=== PATIENT | female | born 1970 | race Caucasian/White ===

== ENCOUNTER 2018-10-11 08:54 | Emergency (ER) | payer MEDICAID ==
[2018-10-11 09:02] VITALS: BP 131/86
--- NOTE | 2018-10-11 09:09 | ED Physician Documentation ---
PD HPI HEENT - Stated complaint Stated Complaint: TOOTH PX - Chief complaint Chief Complaint: Heent - History obtained from History obtained from: Patient - History of Present Illness Timing - onset: How many days ago (2-3 days ago, had her dental implant break off and fall out (it had been loosening over time), and now with some purulence draining. No noted focal swelling.) Timing - duration: Days Timing - details: Abrupt onset, Still present Location: Tooth (left lower canine that had had implant as anchor for dentures.) Associated symptoms: No: Fever, Congestion, Rhinorrhea, Facial swelling Recently seen: Not recently seen Review of Systems Constitutional: denies: Fever, Myalgias Nose: denies: Rhinorrhea / runny nose, Congestion Throat: reports: Dental pain / toothache. 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 HEENT: Tonsil/Adenoidectomy - Present Medications Home Medications: Ambulatory Orders Medication Instructions Recorded Confirmed Albuterol 2.5 mg INH Q4H PRN 01/21/14 05/10/15 Trazodone HCl 400 mg PO DAILY 09/20/14 05/10/15 OXcarbazepine [Trileptal] 600 mg PO DAILY 02/16/15 10/11/18 Albuterol Sulfate 1.25 mg IH Q6H PRN #20 vial 03/16/15 05/10/15 Alprazolam [Xanax] 1 mg PO DAILY 05/10/15 05/10/15 Aripiprazole [Abilify] 40 mg PO DAILY 10/11/18 10/11/18 Clindamycin HCl [Clindamycin 300MG 300 mg PO TID #21 capsule 10/11/18 CAP] Hydrocodone/Acetaminophen [[place] 1 each PO Q6H PRN #18 tablet 10/11/18 5-325 Tablet] Naproxen 375 mg PO BID #20 tablet 10/11/18 Paroxetine HCl [Paxil] 40 mg PO DAILY 10/11/18 10/11/18 Quetiapine Fumarate [Seroquel Xr] 1,200 mg PO DAILY 10/11/18 10/11/18 - Allergies Allergies/Adverse Reactions: Allergies Allergy/AdvReac Type Severity Reaction Status Date / Time adhesive Allergy Hives Verified 10/11/18 09:02 dihydroergotamine AdvReac Unknown Verified 10/11/18 09:02 sumatriptan [From Imitrex] AdvReac Nausea Verified 10/11/18 09:02 sumatriptan succinate * AdvReac Nausea Verified 10/11/18 09:02 [From Imitrex] bees AdvReac Unknown Uncoded 10/11/18 09:02 - Social History Does the pt smoke?: Yes Smoking Status: Former smoker Does the pt drink ETOH?: No Does the pt have substance abuse?: Yes - POLST Patient has POLST: No PD ED PE NORMAL - Vitals Vital signs reviewed: Yes - General General: Alert and oriented X 3, No acute distress, Well developed/nourished - HEENT HEENT: Moist mucous membranes, Pharynx benign. No: Dentition benign (edentulous with 3 implants, the left lower would be 4th one and is missing, with hole in gum and mild purulence draining. No focal swelling/abscess felt otherwise. ) - Neck Neck: Supple, no meningeal sign, No adenopathy - Cardiac Cardiac: RRR, No murmur - Respiratory Respiratory: Clear bilaterally Results - Vitals Vitals: Vital Signs - 24 hr 10/11/18 08:59 Temperature 37.0 C Heart Rate 91 Respiratory 18 Rate Blood Pressure 131/86 H O2 Saturation 97 Oxygen O2 Source Room air PD MEDICAL DECISION MAKING - ED course Complexity details: considered differential, d/w patient Departure - Departure Disposition: 01 Home, Self Care Clinical Impression: Dental infection Condition: Stable Record reviewed to determine appropriate education?: Yes Instructions: ED Abscess Dental Follow-Up: Ritesh Barroso DDS [Provider Admit Priv/Credential] - Prescriptions: Clindamycin HCl [Clindamycin 300MG CAP] 300 mg PO TID #21 capsule Hydrocodone/Acetaminophen [[place] 5-325 Tablet] 1 each PO Q6H PRN #18 tablet PRN Reason: Pain Naproxen 375 mg PO BID #20 tablet Comments: Use an antiseptic mouthwash 2 to 3 times a day to cleanse the gums. Naproxen anti-inflammatory twice daily with food. Clindamycin antibiotic 3 times a day for the next week for the infection. Add Tylenol or hydrocodone if needed for pains. Follow-up with [facility] clinic. You can try calling Dr. Barroso oral surgery and see if he accepts your insurance otherwise likely would need a referral from [facility]. Discharge Date/Time: 10/11/18 09:37
[2018-10-11] MEDS ORDERED: HYDROcod/ACETAM 5/325 MG TABLET PO STA (09:24)
[2018-10-11] MEDS ORDERED: CLINDAMYCIN 150 MG CAPSULE PO STA (09:24)
[2018-10-11] MEDS ORDERED: NAPROXEN 250 MG TABLET PO STA (09:24)
== END 2018-10-11 09:37 | disposition home or self-care (01) ==
LOC: ED 08:54
DX: K04.7 Periapical abscess without sinus (principal); Z87.891 Personal history of nicotine dependence
CPT/HCPCS: 99283; A9270

== ENCOUNTER 2018-12-04 08:48 | Outpatient (CLI) | payer MEDICAID ==
[2018-12-04 09:12] LABS: BASOPHILS # (AUTO) 0.1 10^3/uL (0.0-0.1); BASOPHILS % (AUTO) 1.4 %; EOSINOPHILS # (AUTO) 0.1 10^3/uL (0.0-0.7); EOSINOPHILS % (AUTO) 2.8 %; HGB - HEMOGLOBIN 13.4 g/dL (12.0-16.0); LYMPHOCYTES # (AUTO) 1.2 10^3/uL (1.5-3.5); LYMPHOCYTES % (AUTO) 26.6 %; MEAN CORPUSCULAR HEMOGLOBIN 31.8 pg (27.0-31.0); MEAN CORPUSCULAR VOLUME 90.9 fL (81.0-99.0); MONOCYTES # (AUTO) 0.5 10^3/uL (0.0-1.0); MONOCYTES % (AUTO) 11.1 %; NEUTROPHILS # (AUTO) 2.7 10^3/uL (1.5-6.6); NEUTROPHILS % (AUTO) 58.1 %; PLT - PLATELET COUNT 298 10^3/uL (130-450); RED BLOOD COUNT 4.21 10^6/uL (4.20-5.40); RED CELL DISTRIBUTION WIDTH 12.4 % (12.0-15.0); WHITE BLOOD COUNT 4.6 x10^3/uL (4.8-10.8)
[2018-12-04 09:21] LABS: ALBUMIN 4.4 g/dL (3.2-5.5); ALBUMIN/GLOBULIN RATIO 1.6 (1.0-2.2); ALKALINE PHOSPHATASE 77 IU/L (42-121); ALT ALANINE AMINOTRANSFERASE 16 IU/L (10-60); AST ASPARTATE AMINOTRANSFERASE 17 IU/L (10-42); BILIRUBIN,TOTAL 0.3 mg/dL (0.2-1.0); BUN - BLOOD UREA NITROGEN 12 mg/dL (6-20); CALCIUM 8.7 mg/dL (8.5-10.3); CARBON DIOXIDE - CO2 25 mmol/L (21-32); CHLORIDE 90 mmol/L (101-111); CHOLESTEROL 207 mg/dL; CREATININE 0.9 mg/dL (0.4-1.0); GFR - MDRD 67 (>89); GLUCOSE 102 mg/dL (70-100); HDL CHOLESTEROL 70 mg/dL; LDL CHOLESTEROL,CALCULATED 126 mg/dL; LDL/HDL RATIO 1.8 (<4.4); SODIUM 124 mmol/L (135-145); TOTAL PROTEIN 7.2 g/dL (6.7-8.2); VLDL CHOLESTEROL 11 mg/dL
[2018-12-04 09:47] LABS: HB2 TOTAL 14.9 g/dL; HEMOGLOBIN A1C 0.54 g/dL; HEMOGLOBIN A1C % 5.5 % (4.6-6.2)
== END 2018-12-04 08:49 | disposition home or self-care (01) ==
LOC: LAB 08:48
PROVIDERS: ATTEND Registered Nurse
DX: F25.1 Schizoaffective disorder, depressive type (principal); Z79.899 Other long term (current) drug therapy
CPT/HCPCS: 36415; 80050; 80061; 83036; 83721

== ENCOUNTER 2019-01-11 07:59 | Emergency (ER) | payer MEDICAID ==
[2019-01-11] MEDS ORDERED: CHERRY SYRUP 10 ML UDC PO ONE (08:46)
[2019-01-11] MEDS ORDERED: DEXAMETHASONE 10 MG/ML VIAL PO STA (08:46)
--- NOTE | 2019-01-11 08:49 | ED Physician Documentation ---
PD HPI SKIN - Stated complaint Stated Complaint: RT LEG PAIN - Chief complaint Chief Complaint: Wound - History obtained from History obtained from: Patient, Family - History of Present Illness Timing - onset: How many days ago (10) Timing - duration: Days (10) Timing - details: Gradual onset, Still present Location: RLE Quality / character: Painful, Burning, Crusted Associated symptoms: Myalgias. No: Fever Contributing factors: Other (stress freind is leaving for [place]) Similar symptoms before: Has not had sx before Recently seen: Not recently seen - Additional information Additional information: 48-year-old female has developed a very painful area of redness with tiny red papules along the inner aspect of the right thigh that has been present for a bout 10 days. She is tried some creams and ointments on this without any improvement and the pain is intolerable. She has had the chickenpox previously she has not had herpes. Review of Systems Constitutional: denies: Fever Eyes: denies: Decreased vision Ears: denies: Ear pain Nose: denies: Rhinorrhea / runny nose, Congestion Respiratory: denies: Cough GI: denies: Vomiting Skin: reports: Rash Musculoskeletal: reports: Extremity pain. 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 HEENT: Tonsil/Adenoidectomy - Present Medications Home Medications: Ambulatory Orders Medication Instructions Recorded Confirmed Albuterol 2.5 mg INH Q4H PRN 01/21/14 05/10/15 Trazodone HCl 400 mg PO DAILY 09/20/14 05/10/15 OXcarbazepine [Trileptal] 600 mg PO DAILY 02/16/15 10/11/18 Albuterol Sulfate 1.25 mg IH Q6H PRN #20 vial 03/16/15 05/10/15 Alprazolam [Xanax] 1 mg PO DAILY 05/10/15 05/10/15 Aripiprazole [Abilify] 40 mg PO DAILY 10/11/18 10/11/18 Clindamycin HCl [Clindamycin 300MG 300 mg PO TID #21 capsule 10/11/18 CAP] Hydrocodone/Acetaminophen [[place] 1 each PO Q6H PRN #18 tablet 10/11/18 5-325 Tablet] Naproxen 375 mg PO BID #20 tablet 10/11/18 Paroxetine HCl [Paxil] 40 mg PO DAILY 10/11/18 10/11/18 Quetiapine Fumarate [Seroquel Xr] 1,200 mg PO DAILY 10/11/18 10/11/18 Hydrocodone/Acetaminophen 1 - 2 each PO Q6H PRN #14 tablet 01/11/19 [Hydrocodon-Acetaminophen 5-325] Valacyclovir HCl [Valacyclovir] 1,000 mg PO TID #15 tablet 01/11/19 - Allergies Allergies/Adverse Reactions: Allergies Allergy/AdvReac Type Severity Reaction Status Date / Time adhesive Allergy Hives Verified 01/11/19 08:07 bee venom protein (honey bee) Allergy Anaphylaxis Verified 01/11/19 08:07 mushroom Allergy Anaphylaxis Verified 01/11/19 08:07 dihydroergotamine AdvReac Unknown Verified 01/11/19 08:07 sumatriptan [From Imitrex] AdvReac Nausea Verified 01/11/19 08:07 sumatriptan succinate * AdvReac Nausea Verified 01/11/19 08:07 [From Imitrex] - Social History Does the pt smoke?: Yes Smoking Status: Current every day smoker Does the pt drink ETOH?: No Does the pt have substance abuse?: Yes - Immunizations Immunizations are current?: Yes - POLST Patient has POLST: No PD ED PE NORMAL - Vitals Vital signs reviewed: Yes (hypertensive ) - General General: No acute distress, Well developed/nourished - HEENT HEENT: Atraumatic, PERRL, EOMI - Respiratory Respiratory: No respiratory distress - Derm Derm: Normal color, Warm and dry - Extremities Extremities: No deformity, No edema, Other (There is an outcropping of small red plaques that are crusted over about 2-3mm in size in the distribution of a single nerve. There is no surrounding erythema to suggest superinfection. ) - Neuro Neuro: Alert and oriented X 3, medical i d sales 2-12 intact, No motor deficit, No sensory deficit, Normal speech Eye Opening: Spontaneous Motor: Obeys Commands Verbal: Oriented GCS Score: 15 - Psych Psych: Normal mood, Normal affect Results - Vitals Vitals: Vital Signs - 24 hr 01/11/19 08:04 Temperature 36.0 C L Heart Rate 87 Respiratory 16 Rate Blood Pressure 136/78 H O2 Saturation 97 Oxygen O2 Source Room air PD MEDICAL DECISION MAKING - ED course Complexity details: considered differential, d/w patient, d/w family ED course: 48-year-old female with what appears to be shingles and a small outcropping has extreme pain associated with this and she has not resolved her symptoms. Her stress for the development of this appears to be a friend of hers who is leaving to go to [place]. Departure - Departure Disposition: Home, Self Care Clinical Impression: Shingles Qualifiers: Herpes zoster complications: without complications Qualified Code(s): B02.9 - Zoster without complications Condition: Stable Instructions: ED Shingles Follow-Up: Caleb Hall MD [Primary Care Provider] - Prescriptions: Hydrocodone/Acetaminophen [Hydrocodon-Acetaminophen 5-325] 1 - 2 each PO Q6H PRN #14 tablet PRN Reason: pain Valacyclovir HCl [Valacyclovir] 1,000 mg PO TID #15 tablet
[2019-01-11 09:24] VITALS: BP 127/86
== END 2019-01-11 09:23 | disposition home or self-care (01) ==
LOC: ED 07:59
DX: B02.9 Zoster without complications (principal); F17.200 Nicotine dependence, unspecified, uncomplicated
CPT/HCPCS: 99283; A9270

== ENCOUNTER 2019-02-27 07:23 | Outpatient (CLI) | payer MEDICAID ==
--- NOTE | 2019-02-27 09:52 | Mammography Report ---
Reason: ANNUAL SCREENING Procedure Date: 02/27/2019 Accession Number: [id number] / [id number] Procedure: STEPH - Screening Mammo Dig Bilat CPT Code: FULL RESULT: EXAM: Screening Mammo Dig Bilat DATE: 02/27/2019 8:01 AM CLINICAL HISTORY: Screening encounter. No reported risk factors. TECHNIQUE: (B) - Bilateral CC, laterally exaggerated CC, MLO views were obtained. COMPARISON: 12/07/2014 and 11/25/2013. PARENCHYMAL PATTERN: (D) - The breast(s) demonstrate(s) heterogeneously dense fibroglandular parenchyma. FINDINGS: There are coarse typically benign calcifications. There are no suspicious masses, calcifications, or areas of distortion. IMPRESSION: Benign findings. BI-RADS category 2. RECOMMENDATION: (ANNUAL) - Recommend routine annual screening mammography. BI-RADS CATEGORY: (2) - Benign Findings. STANDARD QUALIFYING STATEMENTS: 1. This examination was not reviewed with the aid of Computer-Aided Detection (CAD). 2. A negative or benign imaging report should not preclude biopsy if clinically suspicious findings are present. 3. Dense breasts may obscure an underlying neoplasm. 4. This examination was reviewed without the aid of 3D breast imaging (tomosynthesis).
== END 2019-02-27 07:24 | disposition home or self-care (01) ==
LOC: DI 07:23
PROVIDERS: ATTEND Nurse Practitioner
DX: Z12.31 Encounter for screening mammogram for malignant neoplasm of breast (principal)
CPT/HCPCS: 77067

== ENCOUNTER 2019-06-06 11:26 | Emergency (ER) | payer MEDICAID ==
[2019-06-06] MEDS ORDERED: SODIUM CHLORIDE 0.9% 1,000 ML IV ONE (11:50)
[2019-06-06 12:02] LABS: MUDS CUTOFF CONCENTRATIONS CUTOFF CONC BELOW:
[2019-06-06 12:04] LABS: BASOPHILS # (AUTO) 0.1 10^3/uL (0.0-0.1); BASOPHILS % (AUTO) 0.9 %; EOSINOPHILS % (AUTO) 0.7 %; HGB - HEMOGLOBIN 13.1 g/dL (12.0-16.0); LYMPHOCYTES # (AUTO) 1.1 10^3/uL (1.5-3.5); LYMPHOCYTES % (AUTO) 18.7 %; MEAN CORPUSCULAR HEMOGLOBIN 31.6 pg (27.0-31.0); MEAN CORPUSCULAR HGB CONC 33.7 g/dL (32.0-36.0); MEAN PLATELET VOLUME 7.8 fL (7.9-10.8); MONOCYTES # (AUTO) 0.6 10^3/uL (0.0-1.0); MONOCYTES % (AUTO) 10.5 %; NEUTROPHILS # (AUTO) 4.1 10^3/uL (1.5-6.6); NEUTROPHILS % (AUTO) 68.9 %; PLT - PLATELET COUNT 281 10^3/uL (130-450); RED BLOOD COUNT 4.14 10^6/uL (4.20-5.40); RED CELL DISTRIBUTION WIDTH 12.3 % (12.0-15.0); WHITE BLOOD COUNT 5.9 x10^3/uL (4.8-10.8)
[2019-06-06 12:07] LABS: BILIRUBIN,URINE NEGATIVE (NEGATIVE); GLUCOSE, URINE (UA) NEGATIVE (NEGATIVE); KETONES,URINE (UA) NEGATIVE (NEGATIVE); LEUKOCYTE ESTERASE, URINE NEGATIVE (NEGATIVE); NITRITE,URINE NEGATIVE (NEGATIVE); OCCULT BLOOD,URINE NEGATIVE (NEGATIVE); PROTEIN,URINE NEGATIVE (NEGATIVE); UROBILINOGEN,URINE 0.2 (NORMAL) E.U./dL (NORMAL)
[2019-06-06 12:08] LABS: CLARITY,URINE CLEAR (CLEAR)
[2019-06-06 12:18] LABS: ALBUMIN 4.7 g/dL (3.2-5.5); ALBUMIN/GLOBULIN RATIO 1.5 (1.0-2.2); BILIRUBIN,TOTAL 0.5 mg/dL (0.2-1.0); CALCIUM 9.4 mg/dL (8.5-10.3); CREATININE 0.6 mg/dL (0.4-1.0); TOTAL PROTEIN 7.8 g/dL (6.7-8.2)
[2019-06-06 12:19] LABS: AMPHETAMINE SCREEN,URINE NEGATIVE (NEGATIVE); BENZODIAZEPINES SCREEN, URINE NEGATIVE (NEGATIVE); COCAINE SCREEN URINE NEGATIVE (NEGATIVE); METHADONE SCREEN, URINE NEGATIVE (NEGATIVE); METHAMPHETAMINES SCREEN, URINE NEGATIVE (NEGATIVE); OPIATE SCREEN, URINE NEGATIVE (NEGATIVE); OXYCODONE SCREEN, URINE NEGATIVE (NEGATIVE); PROPOXYPHENE SCREEN, URINE NEGATIVE (NEGATIVE); TRICYCLIC ANTIDEPRESSANT,URINE NEGATIVE (NEGATIVE)
--- NOTE | 2019-06-06 12:41 | ED Physician Documentation ---
History of Present Illness - Stated complaint Stated Complaint: CONFUSION/INSOMNIA - Chief complaint Chief Complaint: Abd Pain - Additonal information Additional information: This is a 49-year-old female with a history of possible past TIA, schizophrenia, anxiety, PTSD, who presents with confusion and difficulty with word finding. Her boyfriend (who is also her ex-) provides some of the history, as patient is unable to provide some detail. This morning at 8AM her boyfriend found that she was having difficulty speaking and seemed confused. She reportedly slept very poorly last night. He states that at times she will have some mild confusion after taking her nighttime medications, but this was clearly different from usual. Her confusion and word-finding difficulty persisted for over 4 hours so she was brought here. Patient had general malaise yesterday, but no fever, no cough over her baseline, no pain or burning with urination. She has had no recent changes to her medications. She denies headache. 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 HEENT: Tonsil/Adenoidectomy - Present Medications Home Medications: Ambulatory Orders Medication Instructions Recorded Confirmed Albuterol 2.5 mg INH Q4H PRN 01/21/14 05/10/15 Trazodone HCl 400 mg PO DAILY 09/20/14 05/10/15 OXcarbazepine [Trileptal] 600 mg PO DAILY 02/16/15 10/11/18 Albuterol Sulfate 1.25 mg IH Q6H PRN #20 vial 03/16/15 05/10/15 Alprazolam [Xanax] 1 mg PO DAILY 05/10/15 05/10/15 Aripiprazole [Abilify] 40 mg PO DAILY 10/11/18 10/11/18 Clindamycin HCl [Clindamycin 300MG 300 mg PO TID #21 capsule 10/11/18 CAP] Hydrocodone/Acetaminophen [[place] 1 each PO Q6H PRN #18 tablet 10/11/18 5-325 Tablet] Naproxen 375 mg PO BID #20 tablet 10/11/18 Paroxetine HCl [Paxil] 40 mg PO DAILY 10/11/18 10/11/18 Quetiapine Fumarate [Seroquel Xr] 1,200 mg PO DAILY 10/11/18 10/11/18 Hydrocodone/Acetaminophen 1 - 2 each PO Q6H PRN #14 tablet 01/11/19 [Hydrocodon-Acetaminophen 5-325] Valacyclovir HCl [Valacyclovir] 1,000 mg PO TID #15 tablet 01/11/19 - Allergies Allergies/Adverse Reactions: Allergies Allergy/AdvReac Type Severity Reaction Status Date / Time adhesive Allergy Hives Verified 01/11/19 08:07 bee venom protein (honey bee) Allergy Anaphylaxis Verified 01/11/19 08:07 mushroom Allergy Anaphylaxis Verified 01/11/19 08:07 dihydroergotamine AdvReac Unknown Verified 01/11/19 08:07 sumatriptan [From Imitrex] AdvReac Nausea Verified 01/11/19 08:07 sumatriptan succinate * AdvReac Nausea Verified 01/11/19 08:07 [From Imitrex] - Social History Does the pt smoke?: Yes Smoking Status: Former smoker Does the pt drink ETOH?: No Does the pt have substance abuse?: Yes - Immunizations Immunizations are current?: Yes - POLST Patient has POLST: No PD ED PE NORMAL - Vitals Vital signs reviewed: Yes - General General: Alert and oriented X 3, No acute distress - HEENT HEENT: PERRL - Neck Neck: Supple, no meningeal sign - Cardiac Cardiac: RRR, No murmur - Respiratory Respiratory: Other (Diffuse mild and expiratory wheezing.) - Abdomen Abdomen: Soft, Non tender, Non distended - Derm Derm: Warm and dry - Extremities Extremities: No deformity - 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 She has some expressive aphasia, but her pronunciation is excellent. Visual pena are normal, strength in the upper and lower extremities are normal without drift. His nose testing is normal without dysmetria. Sensation intact light touch, cranial nerves are normal. NIHSS = 2), No motor deficit, No sensory deficit - Psych Psych: Normal mood, Normal affect Results - Vitals Vitals: Vital Signs - 24 hr 06/06/19 06/06/19 06/06/19 11:45 14:05 16:14 Temperature 36.9 C 36.6 C 36.6 C Heart Rate 82 82 79 Respiratory 16 17 18 Rate Blood Pressure 140/88 H 152/98 H 151/90 H O2 Saturation 96 95 95 06/06/19 19:04 Temperature 36.8 C Heart Rate 89 Respiratory 18 Rate Blood Pressure 147/93 H O2 Saturation 95 Oxygen O2 Source Room air - Labs Labs: Laboratory Tests 06/06/19 06/06/19 06/06/19 11:45 11:55 11:58 WBC 5.9 RBC 4.14 L Hgb 13.1 Hct 38.9 MCV 94.0 MCH 31.6 H MCHC 33.7 RDW 12.3 Plt Count 281 MPV 7.8 L Neut # (Auto) 4.1 Lymph # (Auto) 1.1 L Gates # (Auto) 0.6 Eos # (Auto) 0.0 Baso # (Auto) 0.1 Absolute Nucleated RBC 0.00 Nucleated RBC % 0.0 Sodium Potassium Chloride Carbon Dioxide Anion Gap BUN Creatinine Estimated GFR (MDRD) Glucose Calcium Total Bilirubin AST ALT Alkaline Phosphatase Total Protein Albumin Globulin Albumin/Globulin Ratio Lipase TSH 3.91 Urine Color LIGHT YELLOW Urine Clarity CLEAR Urine pH 8.0 H Ur Specific [place] <=1.005 Urine Protein NEGATIVE Urine Glucose (UA) NEGATIVE Urine Ketones NEGATIVE Urine Occult Blood NEGATIVE Urine Nitrite NEGATIVE Urine Bilirubin NEGATIVE Urine Urobilinogen 0.2 (NORMAL) Ur Leukocyte Esterase NEGATIVE Ur Microscopic Review NOT INDICATED Urine Culture Comments NOT INDICATED Urine Opiates Screen NEGATIVE Ur Oxycodone Screen NEGATIVE Urine Methadone Screen NEGATIVE Ur Propoxyphene Screen NEGATIVE Ur Barbiturates Screen NEGATIVE Ur Tricyclics Screen NEGATIVE Ur Phencyclidine Scrn NEGATIVE Ur Amphetamine Screen NEGATIVE U Methamphetamines Scrn NEGATIVE U Benzodiazepines Scrn NEGATIVE Urine Cocaine Screen NEGATIVE U Cannabinoids Screen POSITIVE H 06/06/19 11:58 WBC RBC Hgb Hct MCV MCH MCHC RDW Plt Count MPV Neut # (Auto) Lymph # (Auto) Gates # (Auto) Eos # (Auto) Baso # (Auto) Absolute Nucleated RBC Nucleated RBC % Sodium 132 L Potassium 4.4 Chloride 96 L Carbon Dioxide 26 Anion Gap 10.0 BUN 13 Creatinine 0.6 Estimated GFR (MDRD) 107 Glucose 112 H Calcium 9.4 Total Bilirubin 0.5 AST 19 ALT 18 Alkaline Phosphatase 82 Total Protein 7.8 Albumin 4.7 Globulin 3.1 Albumin/Globulin Ratio 1.5 Lipase 51 TSH Urine Color Urine Clarity Urine pH Ur Specific [place] Urine Protein Urine Glucose (UA) Urine Ketones Urine Occult Blood Urine Nitrite Urine Bilirubin Urine Urobilinogen Ur Leukocyte Esterase Ur Microscopic Review Urine Culture Comments Urine Opiates Screen Ur Oxycodone Screen Urine Methadone Screen Ur Propoxyphene Screen Ur Barbiturates Screen Ur Tricyclics Screen Ur Phencyclidine Scrn Ur Amphetamine Screen U Methamphetamines Scrn U Benzodiazepines Scrn Urine Cocaine Screen U Cannabinoids Screen - Rads (name of study) CT head WO Radiology: Other (No acute intracranial abnormalities) PD MEDICAL DECISION MAKING - ED course Complexity details: considered differential (Stroke, TIA, medication side effect, electrolyte abnormality, encephalitis) ED course: On arrival patient is nontoxic-appearing, she is disoriented to date, specific place, and she also has an expressive aphasia. She has no slurred speech, and pronounces words well, but has consistent trouble trying to speak in sentences. When asked what season it is, she says she knows but she cannot say it. I asked her to write it down and she writes "[place]". Her NIH stroke scale is 2 due to her disorientation and expressive aphasia, she is outside of the window for thrombolytics. She has no signs of large vessel occlusion on exam. CT Head shows no acute intracranial abnormality. Her labs are unrevealing. utox positive only for marijuana. UA negative. She has had no recent medication changes. I spoke with Dr. Ina Fragoso of telestroke at 14:20, who recommended CTA head and neck. This was performed and showed no signs of occlusion or significant stenosis. Speaking again with Dr. Fragoso, she agrees with my concern for stroke, and recommends patient be admitted for further work-up. We do not have echocardiogram or MRI available here, so she was [facility] care. Patient and her boyfriend were updated and agreed to this plan of care. Her neurologic exam remained stable, she has an expressive aphasia, and some disorientation, no other deficits. Departure - Departure Disposition: 02 Transfer Acute Care Hosp Clinical Impression: Aphasia Condition: Stable Discharge Date/Time: 06/06/19 19:26
--- NOTE | 2019-06-06 13:21 | CT Report ---
Reason: Expressive aphasia, disoriented Procedure Date: 06/06/2019 Accession Number: [id number] / [id number] Procedure: CT - HEAD WO CPT Code: FULL RESULT: EXAM: CT HEAD EXAM DATE: 06/06/2019 12:36 PM. CLINICAL HISTORY: Expressive aphasia, disoriented. COMPARISON: FACIAL [facility] W09/20/2014 4:54 PM. TECHNIQUE: Multiaxial CT images were obtained from the foramen magnum to the vertex. Reformats: Sagittal and coronal. IV contrast: None. In accordance with CT protocol optimization, one or more of the following dose reduction techniques were utilized for this exam: automated exposure control, adjustment of mA and/or KV based on patient size, or use of iterative reconstructive technique. FINDINGS: Parenchyma: No intraparenchymal hemorrhage. No evidence of mass, midline shift, or CT findings of infarction. Lamb-white differentiation is distinct. Extraaxial Spaces: Normal for age. No subdural or epidural collections identified. Ventricles: Normal in size and position. Sinuses and Orbits: Imaged paranasal sinuses, orbits, and mastoids show no significant abnormality. Bones: No evidence of fracture or calvarial defect. Other: None. IMPRESSION: No acute intracranial abnormality. RADIA
--- NOTE | 2019-06-06 13:21 | XRAY Report ---
Reason: Confusion Procedure Date: 06/06/2019 Accession Number: [id number] / [id number] Procedure: XR - Chest 2 View X-Ray CPT Code: 87826 FULL RESULT: EXAM: CHEST RADIOGRAPHY EXAM DATE: 06/06/2019 12:42 PM. CLINICAL HISTORY: Confusion. COMPARISON: CHEST 2 VIEW PA/LAT 02/16/2015 7:24 PM. TECHNIQUE: 2 views. FINDINGS: Lungs/Pleura: No focal opacities evident. No pleural effusion. No pneumothorax. Normal volumes. Mediastinum: Heart and mediastinal contours are unremarkable. Other: None. IMPRESSION: No acute cardiopulmonary process. RADIA
[2019-06-06] MEDS ORDERED: IOVERSOL 320 100 ML VIAL IVP ONE ×2 (15:01→15:22)
[2019-06-06] MEDS ORDERED: ONDANSETRON 4 MG/2 ML VIAL IVP STA (15:12)
--- NOTE | 2019-06-06 15:46 | CT Report ---
Reason: Expressive aphasia Procedure Date: 06/06/2019 Accession Number: [id number] / [id number] Procedure: CT - ANGIO NECK W CPT Code: FULL RESULT: EXAM: CT ANGIOGRAM NECK EXAM DATE: 06/06/2019 03:12 PM. CLINICAL HISTORY: Expressive aphasia. Disoriented. COMPARISON: HEAD W/O 06/06/2019 12:[address] angiogram of the head performed same time 06/06/2019. TECHNIQUE: Routine axial helical imaging was performed from the skull base through the aortic arch. Reconstructions: Routine multiplanar 3D MIP reconstructions. IV Contrast: 80 mL Optiray 320. Evaluation of arterial stenosis is based on a NASCET method of measurement. In accordance with CT protocol optimization, one or more of the following dose reduction techniques were utilized for this exam: automated exposure control, adjustment of mA and/or KV based on patient size, or use of iterative reconstructive technique. FINDINGS: The aortic arch is unremarkable. Normal three-vessel branching is seen. Great vessels off the arch are patent. Right Carotid: The common carotid, internal carotid, and external carotid arteries are widely patent. No dissection, significant atherosclerotic plaque, or calcification identified. Left Carotid: The common carotid, internal carotid, and external carotid arteries are widely patent. No dissection, significant atherosclerotic plaque, or calcification identified. Vertebrals: The left vertebral artery is dominant. The right vertebral artery is small in caliber. The vertebrobasilar system shows no stenoses. Intracranial Circulation: (See report of CT angiogram of the head performed same time.) Note is made of a 2.3 x 2.1 mm conical outpouching projected inferiorly from the C7 supracavernous segment of the left ICA. Left P-comm arises from the apex. This likely represents an infundibulum rather than an aneurysm. The left vertebral artery is dominant primarily forming the basilar artery. The right vertebral artery is diffusely small in caliber. Other: The bones, soft tissues, and lung apices are within normal limits. IMPRESSION: 1. Normal neck CT angiogram. No hemodynamically significant stenoses. 2. The left vertebral artery is dominant. 3. Focal 2.3 x 2.1 mm conical outpouching projected inferiorly from the C7 supracavernous segment of the left ICA. This may represent an infundibulum at P-comm origin rather than an aneurysm. The P-comm appears to arise from the apex of this protrusion. (See report of CT angiogram of the head performed same time). RADIA
--- NOTE | 2019-06-06 15:56 | CT Report ---
Reason: Expressive aphasia Procedure Date: 06/06/2019 Accession Number: [id number] / [id number] Procedure: CT - ANGIO HEAD W/WO CPT Code: FULL RESULT: EXAM: CT ANGIOGRAM HEAD. CT SCAN OF THE HEAD WITH CONTRAST. EXAM DATE: 06/06/2019 03:33 PM CLINICAL HISTORY: Expressive aphasia. COMPARISON: HEAD W/O 06/06/2019 12:34 PM. NECK ANGIO 06/06/2019 3:12 PM. TECHNIQUE: - CT Scan Head: Using a multidetector scanner, axial images were acquired from the foramen magnum to the skull vertex following contrast administration. - CT Angiogram: Using a multidetector scanner, high-resolution axial images were acquired from the skull base through vertex following rapid infusion of intravenous contrast. Reformats: Multiplanar MIP reformats were reconstructed. Nascet criteria used for stenosis measurement. IV Contrast: 80 mL Optiray 320. In accordance with CT protocol optimization, one or more of the following dose reduction techniques were utilized for this exam: automated exposure control, adjustment of mA and/or KV based on patient size, or use of iterative reconstructive technique. FINDINGS: POST-CONTRAST HEAD: No abnormal enhancement. No acute intracranial abnormality. CT ANGIOGRAM HEAD: RIGHT: Internal Carotid artery: No evidence of dissection. No evidence of aneurysm along the intracranial ICA. Anterior Cerebral Artery: Patent without significant stenosis, aneurysm, or vascular malformation. Middle Cerebral Artery: Patent without significant stenosis, aneurysm, or vascular malformation. Posterior Cerebral Artery: Patent without significant stenosis, aneurysm, or vascular malformation. Posterior Communicating Artery: Patent. Note is made of a 1.8 x 1.3 mm conical outpouching at the origin off the C7 supracavernous segment of the ICA. This is consistent with infundibulum. Vertebral Artery: Diffusely small in caliber. It May terminate in its distal V4 segment as the PICA without definite communication to the basilar artery. Patent without significant stenosis. No evidence of dissection. LEFT: Internal Carotid artery: No evidence of dissection. No evidence of aneurysm along the intracranial ICA. Anterior Cerebral Artery: Patent without significant stenosis, aneurysm, or vascular malformation. Middle Cerebral Artery: Patent without significant stenosis, aneurysm, or vascular malformation. Posterior Cerebral Artery: Patent without significant stenosis, aneurysm, or vascular malformation. Posterior Communicating Artery: Patent. Note is made of a 2.5 x 2.5 mm conical protrusion projected inferiorly from the C7 supracavernous segment. The P-comm arises from the apex. Vertebral Artery: Patent without significant stenosis. No evidence of dissection. Dominant, forming the basilar artery. The PICA arises from the distal V4 segment. CENTRAL: Anterior Communicating Artery: Patent. No aneurysm. Basilar Artery: Patent without significant stenosis. No aneurysm. Bilateral AICA and superior cerebellar arteries are patent. DURAL VENOUS SINUSES AND MAJOR CENTRAL VEINS: Patent. IMPRESSION: CT Head with contrast: (See report of noncontrast CT scan of the head performed earlier same day.) 1. No abnormal intracranial enhancement. No acute intracranial abnormality. CTA Head: 1. Unremarkable CTA of the head. No significant vascular stenosis, dissection, or aneurysm. 2. Right P-comm: 1.8 x 1.3 mm infundibulum at origin off supracavernous ICA. 3. Left P-comm: 2.5 x 2.5 mm conical outpouching at origin off supracavernous ICA. The P-comm arises from the apex. This likely represents an infundibulum rather than a small aneurysm. Six-month follow-up MRA may be of value to help assess stability. RADIA
[2019-06-06] MEDS ORDERED: ASPIRIN CHEW 81 MG TABLET PO STA (17:49)
[2019-06-06 19:05] VITALS: BP 147/93
== END 2019-06-06 19:26 | disposition short-term general hospital (02) ==
LOC: ED 11:26
DX: R47.01 Aphasia (principal); R41.0 Disorientation, unspecified; R29.702 NIHSS score 2; R06.2 Wheezing; Z87.891 Personal history of nicotine dependence
CPT/HCPCS: 36415; 70450; 70496; 70498; 71046; 80053; 80306; 81003; 83690; 84443; 85025; 96361; 96374; 99284; 99285; A9270; Q9967; 81001; 87086

== ENCOUNTER 2019-06-06 19:27 | Outpatient (CLI) | payer MEDICAID | END 2019-06-06 19:28 | disposition short-term general hospital (02) | LOC: EMS 19:27 | PROVIDERS: ATTEND Surgery | DX: R41.0 Disorientation, unspecified (principal) | CPT/HCPCS: A0425; A0428; A0999 ==

== ENCOUNTER 2019-07-11 11:33 | Emergency (ER) | payer MEDICAID ==
--- NOTE | 2019-07-11 12:17 | XRAY Report ---
Reason: cough Procedure Date: 07/11/2019 Accession Number: [id number] / [id number] Procedure: XR - Chest 2 View X-Ray CPT Code: 36428 Final Report FULL RESULT: EXAM: CHEST RADIOGRAPHY EXAM DATE: 07/11/2019 11:54 AM. CLINICAL HISTORY: Cough. COMPARISON: CHEST 2 VIEW 06/06/2019 12:35 PM. TECHNIQUE: 2 views. FINDINGS: Lungs/Pleura: New hazy basilar pulmonary opacities could reflect mild infection. Upper lungs are clear. No pleural effusion or pneumothorax. Mediastinum: Heart and mediastinal contours are unremarkable. Other: None. IMPRESSION: 1. New hazy basilar pulmonary opacities could reflect mild pneumonia. RADIA
[2019-07-11 12:47] LABS: BASOPHILS % (AUTO) 0.3 %; EOSINOPHILS # (AUTO) 0.2 10^3/uL (0.0-0.7); EOSINOPHILS % (AUTO) 2.6 %; HGB - HEMOGLOBIN 12.4 g/dL (12.0-16.0); LYMPHOCYTES # (AUTO) 1.2 10^3/uL (1.5-3.5); LYMPHOCYTES % (AUTO) 17.5 %; MEAN CORPUSCULAR HEMOGLOBIN 31.9 pg (27.0-31.0); MEAN CORPUSCULAR HGB CONC 35.7 g/dL (32.0-36.0); MEAN CORPUSCULAR VOLUME 89.2 fL (81.0-99.0); MEAN PLATELET VOLUME 7.9 fL (7.9-10.8); MONOCYTES # (AUTO) 0.7 10^3/uL (0.0-1.0); MONOCYTES % (AUTO) 10.1 %; NEUTROPHILS # (AUTO) 4.6 10^3/uL (1.5-6.6); NEUTROPHILS % (AUTO) 69.2 %; PLT - PLATELET COUNT 251 10^3/uL (130-450); RED BLOOD COUNT 3.89 10^6/uL (4.20-5.40); RED CELL DISTRIBUTION WIDTH 11.9 % (12.0-15.0); WHITE BLOOD COUNT 6.6 x10^3/uL (4.8-10.8)
[2019-07-11 13:00] LABS: ALBUMIN 4.4 g/dL (3.2-5.5); ALBUMIN/GLOBULIN RATIO 1.5 (1.0-2.2); BILIRUBIN,TOTAL 0.5 mg/dL (0.2-1.0); CALCIUM 9.1 mg/dL (8.5-10.3); CREATININE 0.7 mg/dL (0.4-1.0); TOTAL PROTEIN 7.3 g/dL (6.7-8.2)
[2019-07-11 13:20] VITALS: BP 166/94
--- NOTE | 2019-07-11 13:44 | ED Physician Documentation ---
History of Present Illness - Stated complaint Stated Complaint: SOA/CHEST PX - Chief complaint Chief Complaint: Resp - Additonal information Additional information: This is a 49 year old female who presents with cough. She recently stopped s moking and has had increased cough since then. It is productive of white sputum. She has some mild diffuse chest soreness due to the cough. No hemoptysis, leg swelling. No fever. 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 HEENT: Tonsil/Adenoidectomy - Present Medications Home Medications: Ambulatory Orders Medication Instructions Recorded Confirmed Albuterol 2.5 mg INH Q4H PRN 01/21/14 05/10/15 Trazodone HCl 400 mg PO DAILY 09/20/14 05/10/15 OXcarbazepine [Trileptal] 600 mg PO DAILY 02/16/15 10/11/18 Albuterol Sulfate 1.25 mg IH Q6H PRN #20 vial 03/16/15 05/10/15 Alprazolam [Xanax] 1 mg PO DAILY 05/10/15 05/10/15 Aripiprazole [Abilify] 40 mg PO DAILY 10/11/18 10/11/18 Clindamycin HCl [Clindamycin 300MG 300 mg PO TID #21 capsule 10/11/18 CAP] Hydrocodone/Acetaminophen [[place] 1 each PO Q6H PRN #18 tablet 10/11/18 5-325 Tablet] Naproxen 375 mg PO BID #20 tablet 10/11/18 PARoxetine HCl [Paxil] 40 mg PO DAILY 10/11/18 10/11/18 Quetiapine Fumarate [Seroquel Xr] 1,200 mg PO DAILY 10/11/18 10/11/18 Hydrocodone/Acetaminophen 1 - 2 each PO Q6H PRN #14 tablet 01/11/19 [Hydrocodon-Acetaminophen 5-325] Valacyclovir HCl [Valacyclovir] 1,000 mg PO TID #15 tablet 01/11/19 Azithromycin [Zithromax] 0 mg PO DAILY #6 tablet 07/11/19 predniSONE [Prednisone] 40 mg PO DAILY #10 tablet 07/11/19 - Allergies Allergies/Adverse Reactions: Allergies Allergy/AdvReac Type Severity Reaction Status Date / Time adhesive Allergy Hives Verified 07/11/19 11:37 bee venom protein (honey bee) Allergy Anaphylaxis Verified 07/11/19 11:37 mushroom Allergy Anaphylaxis Verified 07/11/19 11:37 dihydroergotamine AdvReac Unknown Verified 07/11/19 11:37 sumatriptan [From Imitrex] AdvReac Nausea Verified 07/11/19 11:37 sumatriptan succinate * AdvReac Nausea Verified 07/11/19 11:37 [From Imitrex] - Social History Does the pt smoke?: No Smoking Status: Never smoker Does the pt drink ETOH?: No Does the pt have substance abuse?: Yes - Immunizations Immunizations are current?: Yes - POLST Patient has POLST: No PD ED PE NORMAL - Vitals Vital signs reviewed: Yes - General General: Alert and oriented X 3 - HEENT HEENT: Atraumatic - Cardiac Cardiac: RRR - Respiratory Respiratory: Other (Expiratory wheezes diffusely) Results - Vitals Vitals: Oxygen O2 Source Room air - EKG (time done) 11:56 Other comments: Other comments (Rhythm sinus, rate 80, no ST segment changes, normal intervals) - Labs Labs: Laboratory Tests 07/11/19 07/11/19 12:25 12:25 WBC 6.6 RBC 3.89 L Hgb 12.4 Hct 34.7 L MCV 89.2 MCH 31.9 H MCHC 35.7 RDW 11.9 L Plt Count 251 MPV 7.9 Neut # (Auto) 4.6 Lymph # (Auto) 1.2 L [place] # (Auto) 0.7 Eos # (Auto) 0.2 Baso # (Auto) 0.0 Absolute Nucleated RBC 0.00 Nucleated RBC % 0.0 Sodium 124 L Potassium 4.3 Chloride 89 L Carbon Dioxide 24 Anion Gap 11.0 BUN 8 Creatinine 0.7 Estimated GFR (MDRD) 90 Glucose 95 Calcium 9.1 Total Bilirubin 0.5 AST 24 ALT 26 Alkaline Phosphatase 89 Total Protein 7.3 Albumin 4.4 Globulin 2.9 Albumin/Globulin Ratio 1.5 Lipase 74 H - Rads (name of study) CXR Radiology: Other (Hazy basilar opacities may represent mild pneumonia) PD MEDICAL DECISION MAKING - ED course Complexity details: considered differential (PNA, COPD exacerbation, URI, PE, dysrhtymia, ACS) ED course: Pt is well-appearing on exam. She does have expiratory wheezes and was given steroids. CXR shows possible mild pneumonia, her history is more consistent with COPD exacerbation but we will treat with azithromycin as well. Her chest pain sounds like MSK soreness after coughing. EKG unremarkable without signs of ischemia or dysrhytmia, and ACS unlikely. No exam findings or vital sign abnormalities to suggest PE. Labs are also notable for hyponatremia, but she has no neuro symptoms, normal exam, and this is chronic. I discussed that she needs close follow up on this, and I discussed return precautions for concerning symptoms. Pt agreed and was discharged home in good condition. Departure - Departure Disposition: 01 Home, Self Care Clinical Impression: COPD exacerbation Condition: Good Instructions: ED COPD Flare Follow-Up: Shelia Munoz ARNP, GENERAL ADMINISTRATOR-C [Primary Care Provider] - Within 1 week Prescriptions: Azithromycin [Zithromax] 0 mg PO DAILY #6 tablet predniSONE [Prednisone] 40 mg PO DAILY #10 tablet Comments: You were seen today for persistent coughing. Your chest x-ray shows a slight amount of infiltrate in the lower lungs, which may be related to COPD or an early pneumonia, we will treat this with azithromycin. Please take the steroids as prescribed. You may take 200 mg of the Tessalon Perles (2 Perles) 3 times daily. You may also take Tylenol and ibuprofen for discomfort, and try tea with honey. If you are having increasing shortness of breath, fever or other concerning symptoms return to the emergency department Discharge Date/Time: 07/11/19 14:37
[2019-07-11] MEDS ORDERED: predniSONE 20 MG TABLET PO STA (14:31)
== END 2019-07-11 14:37 | disposition home or self-care (01) ==
LOC: ED 11:33
DX: J44.1 Chronic obstructive pulmonary disease with (acute) exacerbation (principal); Z87.891 Personal history of nicotine dependence
CPT/HCPCS: 36415; 71046; 80053; 83690; 85025; 93005; 99283; 99284; J7512

== ENCOUNTER 2019-12-04 13:34 | Outpatient (CLI) | payer MEDICAID ==
--- NOTE | 2019-12-05 00:09 | XRAY Report ---
Reason: PAIN IN LEFT WRIST Procedure Date: 12/04/2019 Accession Number: [id number] / [id number] Procedure: XR - Wrist 3 View LT CPT Code: Final Report FULL RESULT: EXAM: LEFT WRIST RADIOGRAPHY EXAM DATE: 12/04/2019 01:50 PM. CLINICAL HISTORY: PAIN IN LEFT WRIST. COMPARISON: None. TECHNIQUE: 3 views. FINDINGS: Bones: Normal. No fractures or bone lesions. Joints: Normal. No subluxations. Soft Tissues: Normal. No soft tissue swelling. IMPRESSION: Normal wrist radiography. RADIA
== END 2019-12-04 13:35 | disposition home or self-care (01) ==
LOC: DI 13:34
PROVIDERS: ATTEND Nurse Practitioner
DX: M25.532 Pain in left wrist (principal)

== ENCOUNTER 2020-05-31 08:00 | Outpatient (CLI) | payer MEDICAID ==
[2020-06-01 09:57] LABS: HGB - HEMOGLOBIN 13.2 g/dL (12.0-16.0); MEAN CORPUSCULAR HEMOGLOBIN 32.4 pg (27.0-31.0); MEAN CORPUSCULAR HGB CONC 34.4 g/dL (32.0-36.0); MEAN CORPUSCULAR VOLUME 94.3 fL (81.0-99.0); MEAN PLATELET VOLUME 8.1 fL (7.9-10.8); PLT - PLATELET COUNT 309 10^3/uL (130-450); RED BLOOD COUNT 4.07 10^6/uL (4.20-5.40); RED CELL DISTRIBUTION WIDTH 12.2 % (12.0-15.0); WHITE BLOOD COUNT 8.5 x10^3/uL (4.8-10.8)
[2020-06-01 09:58] LABS: BASOPHILS # (AUTO) 0.8 10^3/uL (0.0-0.1); BASOPHILS % (AUTO) 0.9 %; EOSINOPHILS # (AUTO) 0.1 10^3/uL (0.0-0.7); EOSINOPHILS % (AUTO) 1.4 %; LYMPHOCYTES # (AUTO) 1.4 10^3/uL (1.5-3.5); LYMPHOCYTES % (AUTO) 16.8 %; MONOCYTES # (AUTO) 0.9 10^3/uL (0.0-1.0); MONOCYTES % (AUTO) 10.3 %; NEUTROPHILS # (AUTO) 5.9 10^3/uL (1.5-6.6); NEUTROPHILS % (AUTO) 70.2 %
[2020-06-01 10:22] LABS: ALBUMIN 4.2 g/dL (3.2-5.5); ALBUMIN/GLOBULIN RATIO 1.4 (1.0-2.2); ALKALINE PHOSPHATASE 66 IU/L (42-121); ALT ALANINE AMINOTRANSFERASE 19 IU/L (10-60); AST ASPARTATE AMINOTRANSFERASE 20 IU/L (10-42); BILIRUBIN,TOTAL 0.5 mg/dL (0.2-1.0); BUN - BLOOD UREA NITROGEN 11 mg/dL (6-20); CALCIUM 9.3 mg/dL (8.5-10.3); CARBON DIOXIDE - CO2 25 mmol/L (21-32); CHLORIDE 95 mmol/L (101-111); CHOL/HDL RATIO 2.1 (<4.4); CHOLESTEROL 160 mg/dL; CREATININE 0.7 mg/dL (0.4-1.0); GLUCOSE 98 mg/dL (70-100); HDL CHOLESTEROL 78 mg/dL; LDL CHOLESTEROL,CALCULATED 70 mg/dL; LDL/HDL RATIO 0.9 (<4.4); SODIUM 130 mmol/L (135-145); TOTAL PROTEIN 7.2 g/dL (6.7-8.2); VLDL CHOLESTEROL 12 mg/dL
== END 2020-05-31 23:59 | disposition home or self-care (01) ==
LOC: LAB.WCP 08:00
PROVIDERS: ATTEND Nurse Practitioner
DX: Z00.00 Encounter for general adult medical examination without abnormal findings (principal); Z79.899 Other long term (current) drug therapy; J44.9 Chronic obstructive pulmonary disease, unspecified; E78.5 Hyperlipidemia, unspecified; G45.9 Transient cerebral ischemic attack, unspecified; R42 Dizziness and giddiness; F32.9 Major depressive disorder, single episode, unspecified; G47.00 Insomnia, unspecified
CPT/HCPCS: 36415; 80050; 80061; 81599; 83721

== ENCOUNTER 2020-06-19 16:45 | Emergency (ER) | payer MEDICAID ==
[2020-06-19 17:21] LABS: BASOPHILS # (AUTO) 0.1 10^3/uL (0.0-0.1); BASOPHILS % (AUTO) 0.9 %; EOSINOPHILS # (AUTO) 0.4 10^3/uL (0.0-0.7); EOSINOPHILS % (AUTO) 4.1 %; HGB - HEMOGLOBIN 13.8 g/dL (12.0-16.0); LYMPHOCYTES # (AUTO) 1.8 10^3/uL (1.5-3.5); LYMPHOCYTES % (AUTO) 19.8 %; MEAN CORPUSCULAR HEMOGLOBIN 32.2 pg (27.0-31.0); MEAN CORPUSCULAR HGB CONC 35.5 g/dL (32.0-36.0); MEAN CORPUSCULAR VOLUME 90.7 fL (81.0-99.0); MEAN PLATELET VOLUME 7.8 fL (7.9-10.8); MONOCYTES # (AUTO) 1.2 10^3/uL (0.0-1.0); MONOCYTES % (AUTO) 13.2 %; NEUTROPHILS # (AUTO) 5.6 10^3/uL (1.5-6.6); NEUTROPHILS % (AUTO) 61.7 %; PLT - PLATELET COUNT 262 10^3/uL (130-450); RED BLOOD COUNT 4.29 10^6/uL (4.20-5.40); RED CELL DISTRIBUTION WIDTH 11.7 % (12.0-15.0); WHITE BLOOD COUNT 9.1 x10^3/uL (4.8-10.8)
[2020-06-19 17:35] LABS: ALBUMIN 4.3 g/dL (3.2-5.5); ALBUMIN/GLOBULIN RATIO 1.8 (1.0-2.2); BILIRUBIN,TOTAL 0.5 mg/dL (0.2-1.0); CALCIUM 8.9 mg/dL (8.5-10.3); CREATININE 0.9 mg/dL (0.4-1.0); TOTAL PROTEIN 6.7 g/dL (6.7-8.2)
[2020-06-19] MEDS ORDERED: KETOROLAC 30 MG/ML VIAL IVP STA (18:36)
[2020-06-19] MEDS ORDERED: SODIUM CHLORIDE 0.9% 1,000 ML IV STA (18:37)
[2020-06-19 18:40] LABS: BILIRUBIN,URINE NEGATIVE (NEGATIVE); GLUCOSE, URINE (UA) NEGATIVE (NEGATIVE); KETONES,URINE (UA) NEGATIVE (NEGATIVE); LEUKOCYTE ESTERASE, URINE SMALL (NEGATIVE); NITRITE,URINE NEGATIVE (NEGATIVE); OCCULT BLOOD,URINE NEGATIVE (NEGATIVE); PH,URINE 7.5 PH (5.0-7.5); PROTEIN,URINE NEGATIVE (NEGATIVE); UROBILINOGEN,URINE 0.2 (NORMAL) E.U./dL (NORMAL)
[2020-06-19 18:42] LABS: CLARITY,URINE CLEAR (CLEAR)
--- NOTE | 2020-06-19 18:42 | ED Physician Documentation ---
PD HPI ABD PAIN - Stated complaint Stated Complaint: ABD PX - Chief complaint Chief Complaint: Abd Pain - History obtained from History obtained from: Patient - History of Present Illness Timing - onset: Today Timing - duration: Hours (5) Timing - details: Abrupt onset Pain level max: 10 Pain level now: 10 Quality: Sharp, Pain Location: RLQ Associated symptoms: No: Fever, Nausea, Vomiting, Hematemesis, Diarrhea, Constipation, Vaginal bleeding, Vaginal dc Recently seen: Not recently seen - Additional information Additional information: 50-year-old female who presents to the emergency department stating that she developed right lower quadrant abdominal pain today. Has been ongoing for the past 5 hours. Nothing makes it better or worse. Has not had similar symptoms in the past. She describes this as a sharp pain. Radiates down to the groin. No fever. Occasional nausea, no vomiting, no diarrhea or constipation. No vaginal bleeding or discharge. Has a history of a LITTLE/BSO. 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, 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 HEENT: Tonsil/Adenoidectomy - Present Medications Home Medications: Ambulatory Orders Medication Instructions Recorded Confirmed Albuterol 2.5 mg INH Q4H PRN 01/21/14 05/10/15 Trazodone HCl 400 mg PO DAILY 09/20/14 05/10/15 OXcarbazepine [Trileptal] 600 mg PO DAILY 02/16/15 10/11/18 Albuterol Sulfate 1.25 mg IH Q6H PRN #20 vial 03/16/15 05/10/15 Alprazolam [Xanax] 1 mg PO DAILY 05/10/15 05/10/15 Aripiprazole [Abilify] 40 mg PO DAILY 10/11/18 10/11/18 Clindamycin HCl [Clindamycin 300MG 300 mg PO TID #21 capsule 10/11/18 CAP] Hydrocodone/Acetaminophen [[place] 1 each PO Q6H PRN #18 tablet 10/11/18 5-325 Tablet] Naproxen 375 mg PO BID #20 tablet 10/11/18 PARoxetine HCl [Paxil] 40 mg PO DAILY 10/11/18 10/11/18 Quetiapine Fumarate [Seroquel Xr] 1,200 mg PO DAILY 10/11/18 10/11/18 Hydrocodone/Acetaminophen 1 - 2 each PO Q6H PRN #14 tablet 01/11/19 [Hydrocodon-Acetaminophen 5-325] Valacyclovir HCl [Valacyclovir] 1,000 mg PO TID #15 tablet 01/11/19 Azithromycin [Zithromax] 0 mg PO DAILY #6 tablet 07/11/19 predniSONE [Prednisone] 40 mg PO DAILY #10 tablet 07/11/19 - Allergies Allergies/Adverse Reactions: Allergies Allergy/AdvReac Type Severity Reaction Status Date / Time adhesive Allergy Hives Verified 06/19/20 16:57 bee venom protein (honey bee) Allergy Anaphylaxis Verified 06/19/20 16:57 mushroom Allergy Anaphylaxis Verified 06/19/20 16:57 dihydroergotamine AdvReac Unknown Verified 06/19/20 16:57 ketorolac [From Toradol] AdvReac Headache Verified 06/19/20 19:08 sumatriptan [From Imitrex] AdvReac Nausea Verified 06/19/20 16:57 sumatriptan succinate * AdvReac Nausea Verified 06/19/20 16:57 [From Imitrex] - Social History Does the pt smoke?: No Smoking Status: Never smoker Does the pt drink ETOH?: No Does the pt have substance abuse?: Yes Substance Use and Type: Marijuana - Immunizations Immunizations are current?: Yes - POLST Patient has POLST: No PD ED PE NORMAL - Vitals Vital signs reviewed: Yes - General General: Alert and oriented X 3, No acute distress, Well developed/nourished - HEENT HEENT: Moist mucous membranes - Neck Neck: Supple, no meningeal sign - Cardiac Cardiac: RRR, Strong equal pulses - Respiratory Respiratory: No respiratory distress, Clear bilaterally - Abdomen Abdomen: Soft, Non distended, Other (Mild tenderness to palpation right lower quadrant. No peritoneal signs.) - Back Back: No CVA TTP - Derm Derm: Warm and dry - Extremities Extremities: Normal ROM s pain, No edema, Other (No crepitus. No tenderness along the medial aspect of the thigh. No cellulitis.) - Neuro Neuro: Alert and oriented X 3 - Psych Psych: Normal mood, Normal affect Results - Vitals Vitals: Vital Signs - 24 hr 06/19/20 06/19/20 06/19/20 16:54 19:18 20:36 Temperature 36.5 C Heart Rate 86 81 86 Respiratory 16 18 Rate Blood Pressure 126/79 115/60 O2 Saturation 94 99 Oxygen O2 Source Room air - Labs Labs: Laboratory Tests 06/19/20 06/19/20 06/19/20 17:15 17:15 18:25 WBC 9.1 RBC 4.29 Hgb 13.8 Hct 38.9 MCV 90.7 MCH 32.2 H MCHC 35.5 RDW 11.7 L Plt Count 262 MPV 7.8 L Neut # (Auto) 5.6 Lymph # (Auto) 1.8 Pet[place] # (Auto) 1.2 H Eos # (Auto) 0.4 Baso # (Auto) 0.1 Absolute Nucleated RBC 0.00 Nucleated RBC % 0.0 Sodium 128 L Potassium 4.4 Chloride 93 L Carbon Dioxide 27 Anion Gap 8.0 BUN 10 Creatinine 0.9 Estimated GFR (MDRD) 67 L Glucose 99 Calcium 8.9 Total Bilirubin 0.5 AST 22 ALT 24 Alkaline Phosphatase 69 Total Protein 6.7 Albumin 4.3 Globulin 2.4 Albumin/Globulin Ratio 1.8 Lipase 32 Urine Color YELLOW Urine Clarity CLEAR Urine pH 7.5 Ur Specific [place] 1.020 Urine Protein NEGATIVE Urine Glucose (UA) NEGATIVE Urine Ketones NEGATIVE Urine Occult Blood NEGATIVE Urine Nitrite NEGATIVE Urine Bilirubin NEGATIVE Urine Urobilinogen 0.2 (NORMAL) Ur Leukocyte Esterase SMALL H Urine RBC 0-5 Urine WBC 6-10 H Ur Squamous Epith Cells MOD Squamous H Amorphous Sediment Moderate Urine Bacteria Few Ur Microscopic Review INDICATED Urine Culture Comments NOT INDICATED - Rads (name of study) CT abdomen and pelvis Radiology: Prelim report reviewed, EMP read contemporaneously, See rad report (No acute abnormality) PD MEDICAL DECISION MAKING - ED course Complexity details: reviewed results, re-evaluated patient, considered differential, d/w patient, d/w family ED course: Patient is a 50-year-old female with right lower quadrant abdominal pain. No acute findings on CT, however there is a large amount of stool in the right lower quadrant, she does have a history of constipation, we will treat her for this. Patient is otherwise well-appearing, nontoxic. Afebrile. Tolerating p.o. without difficulty. Pain well controlled. Patient counseled regarding signs and symptoms for which I believe and urgent re-evaluation would be necessary. Patient with good understanding of and agreement to plan and is comfortable going home at this time This document was made in part using voice recognition software. While efforts are made to proofread this document, sound alike and grammatical errors may occur. Departure - Departure Disposition: Home, Self Care Clinical Impression: Abdominal pain Qualifiers: Abdominal location: right lower quadrant Qualified Code(s): R10.31 - Right lower quadrant pain Constipation Qualifiers: Constipation type: unspecified constipation type Qualified Code(s): K59.00 - Constipation, unspecified Condition: Good Instructions: ED Constipation Follow-Up: Shelia Munoz ARNP, HYDRAULIC BILLET MAKER-C [Primary Care Provider] - Within 1 week Comments: Make sure you are drinking plenty of water at home. Return if you worsen. Follow-up with your doctor for further care. Discharge Date/Time: 06/19/20 20:36
[2020-06-19] MEDS ORDERED: IOVERSOL 320 100 ML VIAL IVP ONE ×2 (18:47→19:02)
[2020-06-19 18:52] LABS: AMORPHOUS SEDIMENT,UR Moderate /LPF; BACTERIA,URINE Few /HPF (None Seen); RBC,URINE 0-5 /HPF (0-5); SQUAMOUS EPITHELIAL CELL,UR MOD Squamous (<= Few)
--- NOTE | 2020-06-19 19:17 | CT Report ---
PROCEDURE: Abdomen/Pelvis W INDICATIONS: RLQ abd pain CONTRAST: IV CONTRAST: Optiray 320 ml: 100 PO CONTRAST: *NO PO CONTRAST TECHNIQUE: After the administration of intravenous contrast, 5 mm thick sections acquired from the diaphragms to the symphysis. 5 mm thick coronal and sagittal reformats were acquired. For radiation dose reducti on, the following was used: automated exposure control, adjustment of mA and/or kV according to dilshad ent size. COMPARISON: 12/23/2015. FINDINGS: Image quality: Excellent. ABDOMEN: Lung bases: Lung bases are clear. Heart size is normal. Solid organs: Liver and spleen are normal in size and enhancement. Gallbladder is unremarkable Tyler iary system is non dilated. Pancreas enhances normally. No adrenal nodules. Kidneys demonstrate no rmal size and enhancement, without hydronephrosis. Peritoneum and bowel: Bowel loops demonstrate normal wall thickness and caliber. No free fluid or a ir. Normal appendix. Nodes and vessels: No retroperitoneal or mesenteric adenopathy by size criteria. Aorta and inferior vena cava are normal in size. Miscellaneous: No ventral hernias. PELVIS: Genitourinary: Bladder wall thickness is normal. Miscellaneous: No inguinal hernias or adenopathy. Bones: No suspicious bony lesions. No vertebral body compression fractures. IMPRESSION: No evidence acute abdominal process. Reviewed by: Jonathon Duff MD on 06/19/2020 7:16 PM PDT Approved by: Jonathon Duff MD on 06/19/2020 7:16 PM PDT Station ID: [id number]
[2020-06-19 19:18] VITALS: BP 115/60
[2020-06-19] MEDS ORDERED: MORPHINE 2 MG/ML CARPUJECT IVP STA ×2 (19:32→20:18)
[2020-06-19] MEDS ORDERED: MAGNESIUM CITRATE 296 ML BOTTLE PO STA (20:19)
== END 2020-06-19 20:36 | disposition home or self-care (01) ==
LOC: ED 16:45
DX: K59.00 Constipation, unspecified (principal); R10.31 Right lower quadrant pain; Z90.710 Acquired absence of both cervix and uterus; Z90.722 Acquired absence of ovaries, bilateral
CPT/HCPCS: 36415; 74177; 80053; 81001; 83690; 85025; 96361; 96374; 96376; 99283; 99284; A9270; Q9967; 81003; 87086

== ENCOUNTER 2020-07-17 11:01 | Emergency (ER) | payer MEDICAID ==
[2020-07-17 11:11] VITALS: BP 120/78
[2020-07-17] MEDS ORDERED: ACETAMINOPHEN 325 MG TABLET PO STA (11:55)
[2020-07-17] MEDS ORDERED: LACTATED RINGERS 1,000 ML IV ONE (11:55)
[2020-07-17] MEDS ORDERED: METOCLOPRAMIDE 10 MG/2 ML VIAL IVP STA (11:55)
[2020-07-17] MEDS ORDERED: SUMAtriptan 25 MG TABLET PO STA (13:24)
[2020-07-17] MEDS ORDERED: KETOROLAC 30 MG/ML VIAL IVP STA (13:25)
--- NOTE | 2020-07-17 13:50 | ED Physician Documentation ---
History of Present Illness - Stated complaint Stated Complaint: RHODES,ASTHMA - Chief complaint Chief Complaint: Neuro - Additonal information Additional information: 50-year-old woman with history of migraines and cluster headaches presents with sudden onset bilateral frontal headache sudden onset, throbbing, nonradiating, constant, not improved with advil/tylenol, a/w nausea, starting while watching television with her around 4 to 5 hours prior to arrival. Patient states that she has had increased stress at home due to a new grandchild and has been feeling more anxious than usual. States that this is similar to prior cluster headaches. +photophobia. denies vision changes Fever focal neurological deficits vomiting neck pain dizziness. patient denies asthma exacerbation, stating she is sob only because of her headache. Review of Systems Ten Systems: 10 systems reviewed and negative Constitutional: denies: Fever, Chills Cardiac: denies: Chest pain / pressure, Palpitations Respiratory: reports: Dyspnea GI: reports: Nausea. 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 HEENT: Tonsil/Adenoidectomy - Present Medications Home Medications: Ambulatory Orders Medication Instructions Recorded Confirmed Albuterol 2.5 mg INH Q4H PRN 01/21/14 05/10/15 Trazodone HCl 400 mg PO DAILY 09/20/14 05/10/15 OXcarbazepine [Trileptal] 600 mg PO DAILY 02/16/15 10/11/18 Albuterol Sulfate 1.25 mg IH Q6H PRN #20 vial 03/16/15 05/10/15 Alprazolam [Xanax] 1 mg PO DAILY 05/10/15 05/10/15 Aripiprazole [Abilify] 40 mg PO DAILY 10/11/18 10/11/18 Clindamycin HCl [Clindamycin 300MG 300 mg PO TID #21 capsule 10/11/18 CAP] Hydrocodone/Acetaminophen [[place] 1 each PO Q6H PRN #18 tablet 10/11/18 5-325 Tablet] Naproxen 375 mg PO BID #20 tablet 10/11/18 PARoxetine HCl [Paxil] 40 mg PO DAILY 10/11/18 10/11/18 Quetiapine Fumarate [Seroquel Xr] 1,200 mg PO DAILY 10/11/18 10/11/18 Hydrocodone/Acetaminophen 1 - 2 each PO Q6H PRN #14 tablet 01/11/19 [Hydrocodon-Acetaminophen 5-325] Valacyclovir HCl [Valacyclovir] 1,000 mg PO TID #15 tablet 01/11/19 Azithromycin [Zithromax] 0 mg PO DAILY #6 tablet 07/11/19 predniSONE [Prednisone] 40 mg PO DAILY #10 tablet 07/11/19 - Allergies Allergies/Adverse Reactions: Allergies Allergy/AdvReac Type Severity Reaction Status Date / Time adhesive Allergy Hives Verified 07/17/20 11:11 bee venom protein (honey bee) Allergy Anaphylaxis Verified 07/17/20 11:11 mushroom Allergy Anaphylaxis Verified 07/17/20 11:11 dihydroergotamine AdvReac Unknown Verified 07/17/20 11:11 ketorolac [From Toradol] AdvReac Headache Verified 07/17/20 11:11 sumatriptan [From Imitrex] AdvReac Nausea Verified 07/17/20 11:11 sumatriptan succinate * AdvReac Nausea Verified 07/17/20 11:11 [From Imitrex] - Social History Does the pt smoke?: No Smoking Status: Never smoker Does the pt drink ETOH?: No Does the pt have substance abuse?: Yes - Immunizations Immunizations are current?: Yes - POLST Patient has POLST: No PD ED PE NORMAL - Vitals Vital signs reviewed: Yes - General General: Alert and oriented X 3 - HEENT HEENT: Atraumatic, PERRL, EOMI - Neck Neck: Supple, no meningeal sign - Cardiac Cardiac: RRR - Respiratory Respiratory: No respiratory distress (mild end expiratory wheezing) - Abdomen Abdomen: Soft, Non tender - Female Female : Deferred - Rectal Rectal: Deferred - Back Back: No spinal TTP - Derm Derm: Normal color, Warm and dry - Extremities Extremities: No deformity, No edema - Neuro Neuro: Alert and oriented X 3, trust vault custodian 2-12 intact, No motor deficit, No sensory deficit - Psych Psych: Normal mood, Normal affect Results - Vitals Vitals: Vital Signs - 24 hr 07/17/20 07/17/20 07/17/20 11:08 13:06 14:00 Temperature 36.0 C L 36.8 C 36.7 C Heart Rate 91 78 78 Respiratory 18 18 16 Rate Blood Pressure 120/78 120/78 120/78 O2 Saturation 95 94 96 Oxygen O2 Source Room air PD MEDICAL DECISION MAKING - ED course ED course: 50-year-old woman with history of chronic headaches presents with headache similar to previous without neurological deficits. Headache improved with symptomatic care in the emergency room. Counseled patient in regards to symptoms and advised to follow-up with her neurologist. Educated about red flags to return. Departure - Departure Disposition: 01 Home, Self Care Clinical Impression: Headache, Nausea Condition: Good Instructions: ED Headache Migraine Comments: Please return to the ED for any new or worsening symptoms. Follow-up with your primary doctor and with your neurologist when your referral is processed. Discharge Date/Time: 07/17/20 14:17
== END 2020-07-17 14:17 | disposition home or self-care (01) ==
LOC: ED 11:01
DX: R51.9 Headache, unspecified (principal); R11.0 Nausea; J45.909 Unspecified asthma, uncomplicated
CPT/HCPCS: 96374; 96375; 99283; 99284; A9270; J2765; J7120

== ENCOUNTER 2020-07-31 11:41 | Emergency (ER) | payer MEDICAID ==
[2020-07-31 12:37] LABS: GLUCOSE, URINE (UA) NEGATIVE (NEGATIVE); KETONES,URINE (UA) 15 mg/dL (NEGATIVE); LEUKOCYTE ESTERASE, URINE NEGATIVE (NEGATIVE); NITRITE,URINE POSITIVE (NEGATIVE); OCCULT BLOOD,URINE LARGE (NEGATIVE); PROTEIN,URINE 100 mg/dL (NEGATIVE); UROBILINOGEN,URINE 1 (NORMAL) E.U./dL (NORMAL)
[2020-07-31 12:44] LABS: BILIRUBIN,URINE NEGATIVE (NEGATIVE); CLARITY,URINE HAZY (CLEAR); ICTOTEST,URINE NEGATIVE
[2020-07-31 12:45] LABS: BACTERIA,URINE Many /HPF (None Seen); MUCUS,URINE Moderate Strands; RBC,URINE TNTC /HPF (0-5); SQUAMOUS EPITHELIAL CELL,UR MANY Squamous (<= Few)
[2020-07-31 12:47] LABS: HCG UR QUAL NEGATIVE
--- NOTE | 2020-07-31 12:47 | ED Physician Documentation ---
History of Present Illness - Stated complaint Stated Complaint: FEMALE - Chief complaint Chief Complaint: UTI - History obtained from History obtained from: Patient - History of Present Illness Timing: How many weeks ago (1) Pain level max: 0 Pain level now: 0 - Additonal information Additional information: 50-year-old female complains of dysuria, urinary frequency and hematuria for the past week. States feels like her normal UTI. Worse with urination, nothing makes it better. Has not taken anything for this. No back or abdominal pain. No vaginal bleeding or discharge. Review of Systems Constitutional: denies: Fever, Chills GI: denies: Vomiting : reports: Dysuria, Frequency, Hesitancy. 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 HEENT: Tonsil/Adenoidectomy - Present Medications Home Medications: Ambulatory Orders Medication Instructions Recorded Confirmed Albuterol 2.5 mg INH Q4H PRN 01/21/14 05/10/15 Trazodone HCl 400 mg PO DAILY 09/20/14 05/10/15 OXcarbazepine [Trileptal] 600 mg PO DAILY 02/16/15 10/11/18 Albuterol Sulfate 1.25 mg IH Q6H PRN #20 vial 03/16/15 05/10/15 Alprazolam [Xanax] 1 mg PO DAILY 05/10/15 05/10/15 Aripiprazole [Abilify] 40 mg PO DAILY 10/11/18 10/11/18 Clindamycin HCl [Clindamycin 300MG 300 mg PO TID #21 capsule 10/11/18 CAP] Hydrocodone/Acetaminophen [[place] 1 each PO Q6H PRN #18 tablet 10/11/18 5-325 Tablet] Naproxen 375 mg PO BID #20 tablet 10/11/18 PARoxetine HCl [Paxil] 40 mg PO DAILY 10/11/18 10/11/18 Quetiapine Fumarate [Seroquel Xr] 1,200 mg PO DAILY 10/11/18 10/11/18 Hydrocodone/Acetaminophen 1 - 2 each PO Q6H PRN #14 tablet 01/11/19 [Hydrocodon-Acetaminophen 5-325] Valacyclovir HCl [Valacyclovir] 1,000 mg PO TID #15 tablet 01/11/19 Azithromycin [Zithromax] 0 mg PO DAILY #6 tablet 07/11/19 predniSONE [Prednisone] 40 mg PO DAILY #10 tablet 07/11/19 Nitrofurantoin Monohyd/M-Cryst 100 mg PO BID #10 capsule 07/31/20 [Macrobid 100 mg Capsule] Phenazopyridine HCl [Pyridium] 200 mg PO TID PRN #6 tablet 07/31/20 - Allergies Allergies/Adverse Reactions: Allergies Allergy/AdvReac Type Severity Reaction Status Date / Time adhesive Allergy Hives Verified 07/31/20 11:50 bee venom protein (honey bee) Allergy Anaphylaxis Verified 07/31/20 11:50 mushroom Allergy Anaphylaxis Verified 07/31/20 11:50 dihydroergotamine AdvReac Unknown Verified 07/31/20 11:50 fluoxetine AdvReac Unknown Verified 07/31/20 11:50 ketorolac [From Toradol] AdvReac Headache Verified 07/31/20 11:50 sumatriptan [From Imitrex] AdvReac Nausea Verified 07/31/20 11:50 sumatriptan succinate * AdvReac Nausea Verified 07/31/20 11:50 [From Imitrex] - Social History Does the pt smoke?: No Smoking Status: Never smoker Does the pt drink ETOH?: No Does the pt have substance abuse?: Yes - Immunizations Immunizations are current?: Yes - POLST Patient has POLST: No PD ED PE NORMAL - Vitals Vital signs reviewed: Yes - General General: Alert and oriented X 3, No acute distress - HEENT HEENT: Moist mucous membranes - Neck Neck: Supple, no meningeal sign - Cardiac Cardiac: RRR - Respiratory Respiratory: No respiratory distress, Clear bilaterally - Abdomen Abdomen: Soft, Non tender, Non distended - Back Back: No CVA TTP - Derm Derm: Warm and dry - Neuro Neuro: Alert and oriented X 3 - Psych Psych: Normal mood, Normal affect Results - Vitals Vitals: Vital Signs - 24 hr 07/31/20 11:45 Temperature 36.5 C Heart Rate 100 Respiratory 18 Rate Blood Pressure 132/71 H O2 Saturation 99 Oxygen O2 Source Room air - Labs Labs: Laboratory Tests 07/31/20 07/31/20 12:12 12:12 Urine Color YELLOW Urine Clarity HAZY Urine pH 6.0 Ur Specific [place] >=1.030 H >=1.030 H Urine Protein 100 H Urine Glucose (UA) NEGATIVE Urine Ketones 15 H Urine Occult Blood LARGE H Urine Nitrite POSITIVE H Urine Bilirubin NEGATIVE Urine Urobilinogen 1 (NORMAL) Ur Leukocyte Esterase NEGATIVE Urine RBC TNTC H Urine WBC 0-3 Ur Squamous Epith Cells MANY Squamous H Urine Bacteria Many H Urine Mucus Moderate Strands Ur Microscopic Review INDICATED Urine Culture Comments NOT INDICATED Urine HCG, Qual NEGATIVE PD MEDICAL DECISION MAKING - ED course Complexity details: reviewed old records, reviewed results, re-evaluated patient, considered differential, d/w patient ED course: Patient with a UTI. Will place on antibiotics for home. No evidence of sepsis, pyelonephritis. Patient is well-appearing, nontoxic. Patient counseled regarding signs and symptoms for which I believe and urgent re-evaluation would be necessary. Patient with good understanding of and agreement to plan and is comfortable going home at this time This document was made in part using voice recognition software. While efforts are made to proofread this document, sound alike and grammatical errors may occur. Departure - Departure Disposition: 01 Home, Self Care Clinical Impression: Urinary tract infection Qualifiers: Urinary tract infection type: acute cystitis Hematuria presence: with hematuria Qualified Code(s): N30.01 - Acute cystitis with hematuria Condition: Good Instructions: ED UTI Cystitis Female Follow-Up: Shelia Munoz ARNP, [employer] [Primary Care Provider] - As Needed Prescriptions: Nitrofurantoin Monohyd/M-Cryst [Macrobid 100 mg Capsule] 100 mg PO BID #10 capsule Phenazopyridine HCl [Pyridium] 200 mg PO TID PRN #6 tablet PRN Reason: dysuria Comments: Take all antibiotics until gone. Return if you worsen. Follow-up with your doctor as needed for further care.
[2020-07-31] MEDS ORDERED: PHENAZOPYRIDINE 100 MG TABLET PO STA (12:49)
[2020-07-31] MEDS ORDERED: NITROFURANTOIN MACRO 100 MG CAPSULE PO STA (12:49)
[2020-07-31 13:09] VITALS: BP 132/85
== END 2020-07-31 13:09 | disposition home or self-care (01) ==
LOC: ED 11:41
DX: N30.01 Acute cystitis with hematuria (principal)
CPT/HCPCS: 81001; 81025; 99283; 99284; A9270; 81003; 87086

== ENCOUNTER 2020-11-17 14:58 | Emergency (ER) | payer MEDICAID ==
[2020-11-17] MEDS ORDERED: predniSONE 20 MG TABLET PO STA (15:19)
[2020-11-17] MEDS ORDERED: ALBUTEROL NEB 2.5 MG/3 ML INH STA (15:19)
[2020-11-17] MEDS ORDERED: IPRATROPIUM 0.2 MG/ML NEB INH STA (15:20)
--- NOTE | 2020-11-17 15:28 | XRAY Report ---
PROCEDURE: Chest 2 View X-Ray INDICATIONS: Cough, shortness of breath TECHNIQUE: 2 view(s) of the chest. COMPARISON: None. FINDINGS: Surgical changes and devices: None. Lungs and pleura: No pleural effusions or pneumothorax. Lungs are clear. Mediastinum: Mediastinal contours are normal. Heart size is normal. Bones and chest wall: No suspicious bony abnormalities. Soft tissues appear unremarkable. IMPRESSION: No acute cardiopulmonary process demonstrated radiographically. Reviewed by: Robert Cleary MD on 11/17/2020 3:27 PM PDT Approved by: Robert Cleary MD on 11/17/2020 3:27 PM PDT Station ID: [id number]
--- NOTE | 2020-11-17 15:29 | ED Physician Documentation ---
History of Present Illness - Stated complaint Stated Complaint: SOA - Chief complaint Chief Complaint: Resp - Additonal information Additional information: 50-year-old female presents to the emergency department for evaluation of 2 days asthma exacerbation. She states she is used her nebulizer at home 2 or 3 times without relief of symptoms. She does have a dry cough. No fevers. No congestion recent travel or exposure to COVID-19. She is a daily tobacco user. For maintenance she does take Advair. On presentation she is on room air with saturations of 91% and leaning forward to breathe. She is mildly tachypneic with a respiratory rate in the mid 20s. However she is alert and speaking in full sentences Review of Systems Constitutional: denies: Fever, Chills Eyes: reports: Reviewed and negative Ears: reports: Reviewed and negative Nose: reports: Reviewed and negative Throat: reports: Reviewed and negative Cardiac: reports: Reviewed and negative Respiratory: reports: Dyspnea, Cough, Wheezing GI: reports: Reviewed and negative : reports: Reviewed and negative Skin: reports: Reviewed and negative PD PAST MEDICAL HISTORY - Past Medical History Respiratory: Asthma Neuro: TIA, Migraines Psych: Depression, Anxiety, Schizophrenia - Past Surgical History 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, 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 HEENT: Tonsil/Adenoidectomy - Present Medications Home Medications: Ambulatory Orders Medication Instructions Recorded Confirmed Albuterol 2.5 mg INH Q4H PRN 01/21/14 05/10/15 Trazodone HCl 400 mg PO DAILY 09/20/14 05/10/15 OXcarbazepine [Trileptal] 600 mg PO DAILY 02/16/15 10/11/18 Albuterol Sulfate 1.25 mg IH Q6H PRN #20 vial 03/16/15 05/10/15 Alprazolam [Xanax] 1 mg PO DAILY 05/10/15 05/10/15 Aripiprazole [Abilify] 40 mg PO DAILY 10/11/18 10/11/18 Clindamycin HCl [Clindamycin 300MG 300 mg PO TID #21 capsule 10/11/18 CAP] Hydrocodone/Acetaminophen [[place] 1 each PO Q6H PRN #18 tablet 10/11/18 5-325 Tablet] Naproxen 375 mg PO BID #20 tablet 10/11/18 PARoxetine HCl [Paxil] 40 mg PO DAILY 10/11/18 10/11/18 Quetiapine Fumarate [Seroquel Xr] 1,200 mg PO DAILY 10/11/18 10/11/18 Hydrocodone/Acetaminophen 1 - 2 each PO Q6H PRN #14 tablet 01/11/19 [Hydrocodon-Acetaminophen 5-325] Valacyclovir HCl [Valacyclovir] 1,000 mg PO TID #15 tablet 01/11/19 Azithromycin [Zithromax] 0 mg PO DAILY #6 tablet 07/11/19 predniSONE [Prednisone] 40 mg PO DAILY #10 tablet 07/11/19 Nitrofurantoin Monohyd/M-Cryst 100 mg PO BID #10 capsule 07/31/20 [Macrobid 100 mg Capsule] Phenazopyridine HCl [Pyridium] 200 mg PO TID PRN #6 tablet 07/31/20 predniSONE [Deltasone] 40 mg PO DAILY 5 Days #10 tablet 11/17/20 - Allergies Allergies/Adverse Reactions: Allergies Allergy/AdvReac Type Severity Reaction Status Date / Time adhesive Allergy Hives Verified 11/17/20 15:04 bee venom protein (honey bee) Allergy Anaphylaxis Verified 11/17/20 15:04 mushroom Allergy Anaphylaxis Verified 11/17/20 15:04 dihydroergotamine AdvReac Unknown Verified 11/17/20 15:04 fluoxetine AdvReac Unknown Verified 11/17/20 15:04 ketorolac [From Toradol] AdvReac Headache Verified 11/17/20 15:04 sumatriptan [From Imitrex] AdvReac Nausea Verified 11/17/20 15:04 sumatriptan succinate * AdvReac Nausea Verified 11/17/20 15:04 [From Imitrex] - Social History Does the pt smoke?: No Smoking Status: Never smoker Does the pt drink ETOH?: No Does the pt have substance abuse?: Yes - Immunizations Immunizations are current?: Yes - POLST Patient has POLST: No PD ED PE EXPANDED - General General: Alert, Anxious - Cardiac Cardiac: Tachy, Regular Rhythm, Radial strong equal, Pedal strong equal, Cap refill < 2 sec. No: Murmur Present - Respiratory Respiratory: Clear to ausultation ocra. No: Distress, Labored - Abdomen Abdomen: Normal Bowel sounds. No: Tender to palpation - Back Back: Normal exam - Neuro Neuro: Alert and Oriented X 3, CNII-XII intact. No: Confused, Disoriented - GCS Eye Opening: Spontaneous Motor: Obeys Commands Verbal: Oriented Total: 15 Results - Vitals Vitals: Vital Signs - 24 hr 11/17/20 11/17/20 11/17/20 15:00 15:33 15:41 Temperature 36 C L Heart Rate 100 103 H 90 Respiratory 20 20 Rate Blood Pressure 132/77 H O2 Saturation 91 L 94 11/17/20 11/17/20 11/17/20 16:21 16:22 16:23 Temperature 37.3 C Heart Rate 99 95 Respiratory 18 12 Rate Blood Pressure 142/87 H 142/87 H O2 Saturation 93 94 93 Oxygen O2 Source Room air - Rads (name of study) CXR Radiology: Final report received (Janae cardiopulmonary process) PD MEDICAL DECISION MAKING - ED course Complexity details: reviewed results, re-evaluated patient, considered differential, d/w patient ED course: 50-year-old female presents the emergency department for evaluation of progressive dyspnea and wheeze with what she reports is her typical asthma exacerbation. She has been using albuterol nebulizer at home without relief. She does have a dry cough but no fevers no congestion. Chest x-ray is negative radiographically. 1609: Patient has received 2 albuterol nebulizers as well as an Atrovent nebulizer. She is now free of wheeze and breathing much more comfortably however her room air sats remain about 91-95%. 60 mg of prednisone has been administered. Patient is feeling markedly better. We will continue to observe for short period of time. 1630: On reevaluation patient is saturating at 9697% on room air. No tachypnea or wheeze. She feels remarkably improved and wishes to be discharged home. She will be given a 5-day course of oral steroids. The first dose was given here in the emergency department. She was cautioned that tobacco cessation is important long-term asthma control. COVID-19 screen is pending. Emergent and worrisome return precautions were discussed. Departure - Departure Disposition: Home, Self Care Clinical Impression: Tobacco use, Asthma Asthma exacerbation Qualifiers: Asthma severity: moderate Asthma persistence: persistent Qualified Code(s): J45.41 - Moderate persistent asthma with (acute) exacerbation Condition: Stable Record reviewed to determine appropriate education?: Yes Instructions: Asthma Dc Follow-Up: Donna Dey PA-C [Primary Care Provider] - Prescriptions: predniSONE [Deltasone] 40 mg PO DAILY 5 Days #10 tablet Comments: You are seen in the emergency department today for an asthma exacerbation. Here in the emergency department you were given 3 nebulizers which helped improve your breathing and stopped your wheeze. You are also given your first dose of oral steroids. Please fill the prescription for the prednisone tomorrow and b egin taking daily as directed. It is important that you stop smoking tobacco in the long-term as this will impact your long-term asthma control. If you find that you are feeling short of breath at home or have some wheeze it is okay to give yourself the nebulizers however if you find that 2-3 nebulizers at home does not improve your wheeze or cough then please return immediately to the ER.
[2020-11-17 16:22] VITALS: BP 142/87
== END 2020-11-17 16:47 | disposition home or self-care (01) ==
LOC: ED 14:58
DX: J45.41 Moderate persistent asthma with (acute) exacerbation (principal); Z72.0 Tobacco use
CPT/HCPCS: 71046; 94150; 94640; 94664; 99283; 99284; A9270; J7512

== ENCOUNTER 2021-09-28 13:51 | Emergency (ER) | payer MEDICAID ==
[2021-09-28 14:10] VITALS: BP 125/67
--- NOTE | 2021-09-28 14:17 | ED Physician Documentation ---
PD HPI WOUND RECHECK - Stated complaint Stated Complaint: POSSIBLE BOIL IN CHEST - Chief complaint Chief Complaint: Wound - Histroy obtained from History obtained from: Patient - Additional information Additional information: 51-year-old woman with no history of MRSA presents with about a 3-day history of a painful abscess over the upper sternum. No fevers or chills. 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 HEENT: Tonsil/Adenoidectomy - Present Medications Home Medications: Ambulatory Orders Medication Instructions Recorded Confirmed Albuterol 2.5 mg INH Q4H PRN 01/21/14 05/10/15 Trazodone HCl 400 mg PO DAILY 09/20/14 05/10/15 OXcarbazepine [Trileptal] 600 mg PO DAILY 02/16/15 10/11/18 Albuterol Sulfate 1.25 mg IH Q6H PRN #20 vial 03/16/15 05/10/15 Alprazolam [Xanax] 1 mg PO DAILY 05/10/15 05/10/15 ARIPiprazole [Abilify] 40 mg PO DAILY 10/11/18 10/11/18 Clindamycin HCl [Clindamycin 300MG 300 mg PO TID #21 capsule 10/11/18 CAP] Hydrocodone/Acetaminophen [[place] 1 each PO Q6H PRN #18 tablet 10/11/18 5-325 Tablet] Naproxen 375 mg PO BID #20 tablet 10/11/18 PARoxetine HCl [Paxil] 40 mg PO DAILY 10/11/18 10/11/18 Quetiapine Fumarate [Seroquel Xr] 1,200 mg PO DAILY 10/11/18 10/11/18 Hydrocodone/Acetaminophen 1 - 2 each PO Q6H PRN #14 tablet 01/11/19 [Hydrocodon-Acetaminophen 5-325] Valacyclovir HCl [Valacyclovir] 1,000 mg PO TID #15 tablet 01/11/19 Azithromycin [Zithromax] 0 mg PO DAILY #6 tablet 07/11/19 predniSONE [Prednisone] 40 mg PO DAILY #10 tablet 07/11/19 Nitrofurantoin Monohyd/M-Cryst 100 mg PO BID #10 capsule 07/31/20 [Macrobid 100 mg Capsule] Phenazopyridine HCl [Pyridium] 200 mg PO TID PRN #6 tablet 07/31/20 predniSONE [Deltasone] 40 mg PO DAILY 5 Days #10 tablet 11/17/20 Sulfamethox/Trimeth 800/160 1 each PO BID #14 tablet 09/28/21 [Bactrim Ds 800/160] - Allergies Allergies/Adverse Reactions: Allergies Allergy/AdvReac Type Severity Reaction Status Date / Time adhesive Allergy Hives Verified 09/28/21 14:10 bee venom protein (honey bee) Allergy Anaphylaxis Verified 09/28/21 14:10 mushroom Allergy Anaphylaxis Verified 09/28/21 14:10 dihydroergotamine AdvReac Unknown Verified 09/28/21 14:10 fluoxetine AdvReac Unknown Verified 09/28/21 14:10 ketorolac [From Toradol] AdvReac Headache Verified 09/28/21 14:10 sumatriptan [From Imitrex] AdvReac Nausea Verified 09/28/21 14:10 sumatriptan succinate * AdvReac Nausea Verified 09/28/21 14:10 [From Imitrex] - Social History Does the pt smoke?: No Smoking Status: Never smoker Does the pt drink ETOH?: No Does the pt have substance abuse?: Yes - Immunizations Immunizations are current?: Yes - POLST Patient has POLST: No PD ED PE NORMAL - Vitals Vital signs reviewed: Yes - General General: Alert and oriented X 3, No acute distress - Cardiac Cardiac: RRR, No murmur - Respiratory Respiratory: No respiratory distress, Clear bilaterally - Derm Derm: Other (1 cm pointed abscess with mild overlying cellulitis over the upper sternum in the midline.) - Neuro Neuro: Alert and oriented X 3, Normal speech Results - Vitals Vitals: Vital Signs - 24 hr 09/28/21 14:04 Temperature 36.4 C L Heart Rate 73 Respiratory 16 Rate Blood Pressure 125/67 O2 Saturation 96 Oxygen O2 Source Room air Procedures - Abscess I&D (location) Chest wall Preparation: Lidocaine 1%, With epi Incision: Incised with scalpel, Purulent drainage (and sebum) Other: Pt tolerated well, Dressing applied, Antibiotic prescribed Departure - Departure Clinical Impression: Abscess Condition: Good Record reviewed to determine appropriate education?: Yes Instructions: ED Abscess IandD Prescriptions: Sulfamethox/Trimeth 800/160 [Bactrim Ds 800/160] 1 each PO BID #14 tablet Comments: I sent your prescription electronically to the [facility] pharmacy at the corner of [address] here in [place]. We are performing a wound culture, the results should be done in 48-72 hours. If antibiotic change is necessary we will call you. Return if worse in the meantime, especially if you develop increased pain, fevers, cannot keep down the medication. Otherwise follow-up with your physician in approximately 2-3 days.
[2021-09-28] MEDS: LIDOCAINE 1%-EPI 1:100000 20 ML MDV SUBQ STA (14:44)
== END 2021-09-28 14:48 | disposition home or self-care (01) ==
LOC: ED 13:51
DX: L02.91 Cutaneous abscess, unspecified (principal)
CPT/HCPCS: 10060; 87070; 87205

== ENCOUNTER 2022-01-24 14:56 | Emergency (ER) | payer MEDICAID ==
[2022-01-24 15:16] VITALS: BP 145/98
== END 2022-01-24 17:10 | disposition left against medical advice (07) ==
LOC: ED 14:56
DX: Z53.21 Procedure and treatment not carried out due to patient leaving prior to being seen by health care provider (principal)

== ENCOUNTER 2022-10-30 14:57 | Outpatient (CLI) | payer MEDICAID ==
--- NOTE | 2022-10-31 12:28 | Mammography Report ---
BILATERAL DIGITAL SCREENING MAMMOGRAM 3D/2D: 10/30/2022 CLINICAL: Routine screening. Comparison is made to exams dated: 02/27/2019 mammogram, 12/07/2014 mammogram, and 11/25/2013 mammogram - [facility]. Both breasts are heterogeneously dense, which may obscure small masses (category c / 51-75% glandular tissue). No significant masses, calcifications, or other findings are seen in either breast. There has been no significant interval change. IMPRESSION: NEGATIVE There is no mammographic evidence of malignancy. A 1 year screening mammogram is recommended. Based on the Tyrer Cuzick model (a risk assessment model) the patients lifetime risk is 7.9% and her 10 year risk is 1.8%. According to the ACR, ACS, and NCCN guidelines, an annual breast MRI exam rose g with mammogram is recommended if the patients lifetime risk is 20% or greater. This exam was interpreted at Station ID: [id number]. NOTE: For mammograms, a report in lay terms will be sent to the patient. Approximately 15% of breast malignancies will not be visualized mammographically. In the management of a palpable breast mass, a negative mammogram must not discourage biopsy of a clinically suspicious lesion. Electronically Signed By: Quang aguero/dami:10/30/2022 17:00:49 letter sent: No_Letter ACR BI-RADS Category 1: Negative [id number] PARENCHYMAL PATTERN: (D) - The breast(s) demonstrate(s) heterogeneously dense fibroglandular chica morrell. BI-RADS CATEGORY: (1) - 1 RECOMMENDATION: (ANNUAL) - Recommend routine annual screening mammography. [id number] 1 year screening LATERALITY: (B)
== END 2022-10-30 14:58 | disposition home or self-care (01) ==
LOC: DI 14:57
DX: Z12.31 Encounter for screening mammogram for malignant neoplasm of breast (principal)

== ENCOUNTER 2023-03-20 08:00 | Outpatient (CLI) | payer MEDICAID ==
[2023-03-20 12:20] LABS: MUDS CUTOFF CONCENTRATIONS CUTOFF CONC BELOW:
[2023-03-20 12:46] LABS: AMPHETAMINE SCREEN,URINE POSITIVE (NEGATIVE); BARBITURATE SCREEN,UR NEGATIVE (NEGATIVE); BENZODIAZEPINES SCREEN, URINE POSITIVE (NEGATIVE); COCAINE SCREEN URINE NEGATIVE (NEGATIVE); METHADONE SCREEN, URINE NEGATIVE (NEGATIVE); METHAMPHETAMINES SCREEN, URINE POSITIVE (NEGATIVE); OPIATE SCREEN, URINE NEGATIVE (NEGATIVE); OXYCODONE SCREEN, URINE NEGATIVE (NEGATIVE); PROPOXYPHENE SCREEN, URINE NEGATIVE (NEGATIVE); THC CANNABINOID SCREEN, URINE POSITIVE (NEGATIVE); TRICYCLIC ANTIDEPRESSANT,URINE POSITIVE (NEGATIVE)
== END 2023-03-20 23:59 | disposition home or self-care (01) ==
LOC: LAB.N 08:00
PROVIDERS: ATTEND Physician Assistant Medical
DX: R55 Syncope and collapse (principal)
CPT/HCPCS: 80306; 80307; 80324; 80349; 81599

== ENCOUNTER 2023-05-17 12:33 | Outpatient (CLI) | payer MEDICAID ==
--- NOTE | 2023-05-17 23:54 | CT Report ---
PROCEDURE: HEAD WO INDICATIONS: SYNCOPE AND COLLAPSE TECHNIQUE: Noncontrast 4.5 mm thick angled axial sections acquired from the foramen magnum to the vertex. For r adiation dose reduction, the following was used: automated exposure control, adjustment of mA and/or kV according to patient size. COMPARISON: 06/06/2019, 12/07/2013 FINDINGS: Image quality: Excellent. CSF spaces: Basal cisterns are patent. No extra-axial fluid collections. Ventricles are normal in size and shape. Brain: No midline shift. No intracranial masses or hemorrhage. Lamb-white matter interface is norm al. Skull and face: Calvarium and visualized facial bones are intact, without suspicious lesions. Sinuses: Visualized sinuses and mastoids are clear. IMPRESSION: Unremarkable intracranial study, similar to prior. Reviewed by: Pietro Partida MD on 05/17/2023 10:53 PM [email or web address] Approved by: Pietro Partida MD on 05/17/2023 10:53 PM [email or web address] Station ID: [id number]
== END 2023-05-17 12:34 | disposition home or self-care (01) ==
LOC: DI 12:33
PROVIDERS: ATTEND Physician Assistant Medical
DX: R55 Syncope and collapse (principal)

== ENCOUNTER 2023-09-17 19:19 | Emergency (ER) | payer MEDICAID | END 2023-09-17 19:46 | disposition left against medical advice (07) | LOC: ED 19:19 | DX: Z53.21 Procedure and treatment not carried out due to patient leaving prior to being seen by health care provider (principal) ==